=== PATIENT | male | born 1945 | race Caucasian/White ===

== ENCOUNTER 2017-07-15 13:21 | Outpatient (CLI) | payer MEDICARE, OTHER ==
--- NOTE | 2017-07-15 14:39 | CT ---
CT OF THE CHEST WITHOUT CONTRAST: COMPARISON: None. HISTORY: Left lung nodule. A 37-year-old smoking history. The patient quit 10 years ago. TECHNIQUE: Multiple contiguous axial images were obtained in a CT of the chest without contrast per low-dose can cer screening protocol. Coronal reformats were performed. FINDINGS: Mild emphysematous changes are seen in the lung apices. No suspicious pulmonary nodule is seen. No pneumothorax or pleural effusion is present. No focal infiltrates are seen in the lungs. The heart is normal in size without focal cardiac abnormality. Calcifications are seen in the [place] arteries and aorta. No abdominal or pelvic lymphadenopathy is seen. The visualized subdiaphragmatic structures are unremarkable. The chest wall soft tissues are unremar kable. IMPRESSION: Lung RADS category 1 - negative. POS: [facility]
== END 2017-07-15 13:22 | disposition home or self-care (01) ==
LOC: CT 13:21
PROVIDERS: ATTEND Internal Medicine Pulmonary Disease
DX: F17.210 Nicotine dependence, cigarettes, uncomplicated (principal)
CPT/HCPCS: G0297

== ENCOUNTER 2019-03-10 13:06 | Outpatient (CLI) | payer MEDICARE ==
--- NOTE | 2019-03-10 13:38 | CT ---
EXAM: CT chest without contrast per low-dose cancer screening protocol HISTORY: History of smoking and nicotine dependence COMPARISON: 07/15/2017 TECHNIQUE: Multiple contiguous axial images were obtained in a CT of the chest without contrast per l ow-dose cancer screening protocol. Sagittal and coronal reformats were performed. FINDINGS: Pulmonary nodules: Emphysematous changes are seen in the lung apices. No suspicious pulmonary nodules are seen. No focal infiltrates are seen. Pleural space: No pneumothorax or pleural effusion are seen. Heart: The heart is normal in size. Mediastinum: No hilar or mediastinal lymphadenopathy appreciated on this limited noncontrast examinat ion. Bones: Degenerative changes in the spine.. Visualized subdiaphragmatic structures: Unremarkable. IMPRESSION: Lung RADS category 1-negative.
== END 2019-03-10 13:07 | disposition home or self-care (01) ==
LOC: CT 13:06
PROVIDERS: ATTEND Internal Medicine
DX: F17.210 Nicotine dependence, cigarettes, uncomplicated (principal); I10 Essential (primary) hypertension
CPT/HCPCS: G0297

== ENCOUNTER 2021-03-01 17:26 | Emergency (ER) | payer MEDICARE ==
[2021-03-01 18:02] LABS: #Basophils 0.1 thou/uL (0.0-0.2); #Eosinphils 0.3 thou/uL (0.0-0.7); #Lymphocytes 1.7 thou/uL (1.20-3.40); #Monocytes 0.9 thou/uL (0.11-0.59); #Neutrophils 4.3 thou/uL (1.40-6.50); %Eosinophils 4.3 % (0.0-10.0); %Lymphocytes 23.2 % (21.0-51.0); %Monocytes 12.3 % (0.0-10.0); %Neutrophils 59.2 % (42.0-75.0); Hemoglobin 14.1 g/dL (14.0-18.0); Mean Corpuscular HGB CONC 34.4 g/dL (32.0-36.0); Mean Corpuscular Volume 98.7 fL (78.0-98.0); Mean Platelet Volume 5.8 fL (7.4-10.4); Platelet Count 255 thou/uL (130-400); Red Blood Cell (RBC) Count 4.15 mill/uL (4.70-6.10); White Blood Cell (WBC) Count 7.2 thou/uL (4.8-10.8)
[2021-03-01 18:28] LABS: ALT (SGPT) 46 U/L (8-55); AST (SGOT) 24 U/L (5-34); Alkaline Phosphatase 90 U/L (40-110); Anion Gap 13 mmol/L (10-20); BUN (Urea Nitrogen) 23 mg/dL (8.4-25.7); Bilirubin, Total 0.4 mg/dL (0.2-1.2); Calc. Creatinine Clearance 0 mL/min (70-130); Calcium 9.4 mg/dL (7.8-10.44); Carbon Dioxide 25 mmol/L (23-31); Chloride 103 mmol/L (98-107); Globulin 2.3 g/dL (2.4-3.5); Glucose 97 mg/dL (83-110); Potassium 3.9 mmol/L (3.5-5.1); Protein, Total 6.3 g/dL (5.8-8.1); Sodium 137 mmol/L (136-145)
[2021-03-01] MEDS ORDERED: Aspirin Chewable 81 MG TAB ONE (18:39)
[2021-03-01 18:49] LABS: CKMB 1.8 ng/mL (0-6.6)
[2021-03-01] MEDS ORDERED: Enoxaparin Sodium 100 MG/ML SYRINGE ONE (20:08)
== END 2021-03-01 21:04 | disposition short-term general hospital (02) ==
LOC: ERS 17:26
DX: I21.4 Non-ST elevation (NSTEMI) myocardial infarction (principal); I45.10 Unspecified right bundle-branch block; I10 Essential (primary) hypertension; G47.30 Sleep apnea, unspecified; F17.210 Nicotine dependence, cigarettes, uncomplicated; Z79.82 Long term (current) use of aspirin; Z79.899 Other long term (current) drug therapy
CPT/HCPCS: 36415; 71045; 80053; 82553; 84484; 85025; 93005; 96372; J1650

== ENCOUNTER 2021-12-22 12:14 | Outpatient (CLI) | payer OTHER | END 2021-12-22 12:15 | disposition home or self-care (01) | LOC: BICCT 12:14 | PROVIDERS: ATTEND Internal Medicine | DX: Z12.2 Encounter for screening for malignant neoplasm of respiratory organs (principal); F17.210 Nicotine dependence, cigarettes, uncomplicated; R91.8 Other nonspecific abnormal finding of lung field | CPT/HCPCS: 71271 ==

== ENCOUNTER 2022-06-06 16:05 | Outpatient (CLI) | payer OTHER ==
[2022-06-06 17:07] LABS: Bilirubin Neg (Negative); Blood, Urine Negative (Negative); Clarity Clear (Clear); Glucose, Urine (Dipstick) Normal (Negative); Ketone, Urine Negative (Negative); Leukocyte Negative (Negative); Nitrite Negative (Negative); Protein, Urine (Dipstick) Negative (Neg-Trace); Urobilinogen Normal mg/dL (Less than 2)
[2022-06-06 17:12] LABS: #Basophils 0.1 10x3/uL (0.0-0.2); #Eosinphils 0.3 10x3/uL (0.0-0.5); #Monocytes 1.2 10x3/uL (0.0-1.1); #Neutrophils 6.2 10x3/uL (1.5-8.4); %Basophils 0.8 % (0.0-2.0); %Eosinophils 2.8 % (0.0-6.0); %Lymphocytes 15.1 % (18.0-47.0); %Monocytes 12.7 % (0.0-10.0); %Neutrophils 67.9 % (40.0-75.0); Hemoglobin 13.4 g/dL (13.5-17.5); Mean Corpuscular HGB CONC 33.3 g/dL (32.0-36.0); Mean Corpuscular Hemoglobin 32.1 pg (27.0-33.0); Mean Corpuscular Volume 96.6 fl (81.2-95.1); Mean Platelet Volume 9.1 fl (7.4-10.4); Platelet Count 230 10x3/uL (150-450); RBC Distribution Width 14.2 % (11.5-14.5); Red Blood Cell (RBC) Count 4.17 10x6/uL (4.32-5.72); White Blood Cell (WBC) Count 9.1 10x3/uL (3.5-10.5)
[2022-06-06 17:18] LABS: INR-International Normal Ratio 0.9; Prothrombin Time 9.9 sec (9.5-12.1)
[2022-06-06 17:19] LABS: Anion Gap 15 mmol/L (10-20); BUN (Urea Nitrogen) 28 mg/dL (8.4-25.7); Calc. Creatinine Clearance 0 mL/min (70-130); Calcium 9.3 mg/dL (7.8-10.44); Carbon Dioxide 19 mmol/L (23-31); Chloride 109 mmol/L (98-107); Estimated GFR 56; Glucose 90 mg/dL (83-110); Potassium 4.6 mmol/L (3.5-5.1); Sodium 138 mmol/L (136-145)
== END 2022-06-06 16:06 | disposition home or self-care (01) ==
LOC: LABBT 16:05
PROVIDERS: ATTEND Orthopaedic Surgery
DX: Z01.818 Encounter for other preprocedural examination (principal); M17.12 Unilateral primary osteoarthritis, left knee
CPT/HCPCS: 71046; 80048; 81003; 85025; 85610; 86850; 86900; 86901; 87081; 93005; 93010

== ENCOUNTER 2022-06-11 05:31 | Inpatient (IN) | payer OTHER ==
[2022-06-11] MEDS ORDERED: Sodium Chloride 0.9% 100 ML ONE (05:58)
[2022-06-11] MEDS ORDERED: Tranexamic Acid 1,000 MG/10 ML VIAL ONE ×2 (05:58→09:25)
[2022-06-11] MEDS ORDERED: Vancomycin (BATCH) 1.5 GRAM/300 ML BAG ONE (05:58)
[2022-06-11] MEDS ORDERED: Bupivacaine PF 0.5% 30 ML VIAL ONE ×2 (06:42→06:43)
[2022-06-11] MEDS ORDERED: Midazolam HCl 2 mg/2 ml Vial ONE (06:43)
[2022-06-11] MEDS ORDERED: Lidocaine 1% (PF) 30 ML VIAL ONE (06:43)
[2022-06-11] MEDS ORDERED: FENTANYL 50 MCG/ML 1 ML VIAL ONE ×2 (06:43→10:11)
[2022-06-11] MEDS ORDERED: Clindamycin/D5W 600 mg/50 ml Premix Bag ONE (07:00)
[2022-06-11] MEDS ORDERED: fentaNYL PF 100 MCG/2 ML SYRINGE ONE (07:09)
[2022-06-11 07:14] LABS: SARS-CoV-2 NAA Rapid Test Not Detected (NotDetected)
[2022-06-11] MEDS ORDERED: Ondansetron PF 4 MG/2 ML Vial ONE (07:31)
[2022-06-11] MEDS ORDERED: PHENYLEPHRINE-NS 100 MCG/ML 10 ML SYRINGE ONE (07:31)
[2022-06-11] MEDS ORDERED: ePHEDrine 50 MG/ML VIAL ONE (07:31)
[2022-06-11] MEDS ORDERED: traMADol HCl 50 MG TAB PO PRN (07:31)
[2022-06-11] MEDS ORDERED: Promethazine HCl 25 MG/ML VIAL IM PRN ×2 (07:31→07:56)
[2022-06-11] MEDS ORDERED: Bupivacaine HCl 0.5%/Epinephrine 1:200,000/PF 30 ml Vial ONE (07:31)
[2022-06-11] MEDS ORDERED: Fentanyl 100 MCG/2 ML VIAL SLOW IVP PRN (07:31)
[2022-06-11] MEDS ORDERED: PROPOFOL 200 MG/20 ML VIAL ONE (07:31)
[2022-06-11] MEDS ORDERED: Acetaminophen 325 MG TAB PO PRN (07:31)
[2022-06-11] MEDS ORDERED: Lidocaine 1% PF 5 ML VIAL ONE (07:31)
[2022-06-11] MEDS ORDERED: Glycopyrrolate 0.2 MG/ML 5 ML SYRINGE ONE (07:31)
[2022-06-11] MEDS ORDERED: Zolpidem Tartrate 5 MG TAB PO PRN (07:31)
[2022-06-11] MEDS ORDERED: Ondansetron PF 4 MG/2 ML Vial IVP PRN (07:31)
[2022-06-11] MEDS ORDERED: diphenhydrAMINE 25 MG CAP PO PRN (07:31)
[2022-06-11] MEDS ORDERED: Calcium Carbonate 500 MG ChewTAB PO PRN (07:34)
[2022-06-11] MEDS ORDERED: Tranexamic Acid 1,000 MG in Sodium Chloride 0.9% 100 ML IVPB SCH (07:45)
[2022-06-11] MEDS ORDERED: HYDROmorphone 2 MG/ML VIAL SLOW IVP PRN (07:56)
[2022-06-11] MEDS ORDERED: Ropivacaine 0.2% 550 ML 550 ML NERVE BLCK SCH (11:00)
[2022-06-11 12:19] VITALS: BMI 32.6
[2022-06-11] MEDS: HYDROcodone/Acetaminophen 10/325 mg Tablet PO PRN (12:31)
[2022-06-11] MEDS: Sodium Chloride 0.9% 1,000 ML IV SCH ×2 (12:33→18:42)
[2022-06-11] MEDS: Amlodipine 5 MG TAB PO SCH (12:33)
[2022-06-11] MEDS: Ferrous Gluconate 324 MG TAB PO SCH ×2 (12:34→20:40)
[2022-06-11] MEDS: Aspirin 81 mg Enteric Coated Tablet PO SCH ×3 (12:34→20:41)
[2022-06-11] MEDS: Multivitamin W/ Minerals 1 TAB PO SCH (12:34)
[2022-06-11] MEDS: Senokot S 8.6-50 MG TAB PO SCH ×2 (12:35→20:40)
[2022-06-11] MEDS: Losartan/Hydrochlorothiazide 100 mg/25 mg Tablet PO SCH (12:38)
[2022-06-11] MEDS: CEFAZOLIN 2 GM in Sodium Chloride 0.9% 100 ML IVPB SCH ×2 (16:11→22:15)
[2022-06-11] MEDS: Ketorolac Tromethamine 30 MG/ML VIAL IVP SCH ×2 (16:12→22:16)
[2022-06-11] MEDS ORDERED: Vancomycin HCl 1.5 GM in Sodium Chloride 0.9% 250 ML 300 ML IVPB SCH (18:00)
[2022-06-11] MEDS: Atorvastatin Calcium 40 MG TAB PO SCH (20:39)
[2022-06-11] MEDS: Vit A,C & E/Lutein/Minerals Tablet PO SCH (20:40)
[2022-06-11] MEDS ORDERED: Non-Formulary Item 1 EACH (Multivit-Min/Fa/Lycopen/Lutein [Centrum Silver Men Tablet] 1 E PO SCH (21:00)
[2022-06-12] MEDS: Sodium Chloride 0.9% 1,000 ML IV SCH ×3 (06:08→22:39)
[2022-06-12] MEDS: Ketorolac Tromethamine 30 MG/ML VIAL IVP SCH ×3 (06:11→20:43)
[2022-06-12 07:20] LABS: Hemoglobin 12.1 g/dL (14.0-18.0); Mean Corpuscular Hemoglobin 33.2 pg (27.0-31.0); Mean Platelet Volume 6.6 fL (7.4-10.4); Platelet Count 195 10x3/uL (130-400); RBC Distribution Width 12.8 % (11.5-14.5); Red Blood Cell (RBC) Count 3.65 mill/uL (4.70-6.10); White Blood Cell (WBC) Count 8.2 10x3/uL (4.8-10.8)
[2022-06-12] MEDS: HYDROcodone/Acetaminophen 10/325 mg Tablet PO PRN ×2 (09:05→18:39)
[2022-06-12] MEDS: Ferrous Gluconate 324 MG TAB PO SCH ×2 (09:06→20:43)
[2022-06-12] MEDS: Multivitamin W/ Minerals 1 TAB PO SCH (09:07)
[2022-06-12] MEDS: Amlodipine 5 MG TAB PO SCH (09:07)
[2022-06-12] MEDS: Losartan/Hydrochlorothiazide 100 mg/25 mg Tablet PO SCH (09:07)
[2022-06-12] MEDS: Senokot S 8.6-50 MG TAB PO SCH ×2 (13:48→20:42)
[2022-06-12] MEDS: Aspirin 81 mg Enteric Coated Tablet PO SCH (20:42)
[2022-06-12] MEDS: Atorvastatin Calcium 40 MG TAB PO SCH (20:43)
[2022-06-12] MEDS: Vit A,C & E/Lutein/Minerals Tablet PO SCH (20:43)
[2022-06-13] MEDS: Ketorolac Tromethamine 30 MG/ML VIAL IVP SCH (05:21)
[2022-06-13 06:05] LABS: Hemoglobin 12.5 g/dL (14.0-18.0); Mean Corpuscular HGB CONC 32.9 g/dL (32.0-36.0); Mean Corpuscular Hemoglobin 33.3 pg (27.0-31.0); Mean Platelet Volume 6.8 fL (7.4-10.4); Platelet Count 203 10x3/uL (130-400); RBC Distribution Width 12.8 % (11.5-14.5); Red Blood Cell (RBC) Count 3.76 mill/uL (4.70-6.10); White Blood Cell (WBC) Count 9.9 10x3/uL (4.8-10.8)
[2022-06-13] MEDS: Senokot S 8.6-50 MG TAB PO SCH (08:31)
[2022-06-13] MEDS: Multivitamin W/ Minerals 1 TAB PO SCH (08:31)
[2022-06-13] MEDS: Amlodipine 5 MG TAB PO SCH (08:32)
[2022-06-13] MEDS: Losartan/Hydrochlorothiazide 100 mg/25 mg Tablet PO SCH (08:32)
[2022-06-13] MEDS: Sodium Chloride 0.9% 1,000 ML IV SCH (08:32)
[2022-06-13] MEDS: Ferrous Gluconate 324 MG TAB PO SCH (08:32)
[2022-06-13] MEDS: HYDROcodone/Acetaminophen 10/325 mg Tablet PO PRN (08:35)
[2022-06-13 09:00] VITALS: BP 136/77; TEMP 98
[2022-06-13] MEDS ORDERED: Aspirin 81 mg Enteric Coated Tablet PO SCH (10:15)
== END 2022-06-13 11:30 | disposition home or self-care (01) | DRG 470 ==
LOC: SDC 05:31 → SJJU 11:07 → EDSTATUS 14:00 → OBSVTOIN 06-13 08:53
PROVIDERS: ADMIT Orthopaedic Surgery; ATTEND Orthopaedic Surgery
PROC: 0SRD0J9 Replacement of Left Knee Joint with Synthetic Substitute, Cemented, Open Approach (ICD-10-PCS; principal; 2022-06-11)
DX: M17.12 Unilateral primary osteoarthritis, left knee (principal); K21.9 Gastro-esophageal reflux disease without esophagitis; E78.00 Pure hypercholesterolemia, unspecified; G47.33 Obstructive sleep apnea (adult) (pediatric); I73.9 Peripheral vascular disease, unspecified; I10 Essential (primary) hypertension; I25.10 Atherosclerotic heart disease of native coronary artery without angina pectoris; J43.9 Emphysema, unspecified; N40.0 Benign prostatic hyperplasia without lower urinary tract symptoms; F17.210 Nicotine dependence, cigarettes, uncomplicated; Z20.822 Contact with and (suspected) exposure to COVID-19; Z98.52 Vasectomy status; Z95.1 Presence of aortocoronary bypass graft; Z98.890 Other specified postprocedural states; Z95.5 Presence of coronary angioplasty implant and graft; I25.2 Old myocardial infarction; Z88.8 Allergy status to other drugs, medicaments and biological substances; Z88.1 Allergy status to other antibiotic agents
CPT/HCPCS: 36415; 85027; 96365; 96375; 96376; A4306; C1713; C1776; G0378; J1885; J2001; J2250; J2405; J2704; J2795; J3010; J3370; J3490; J7050; S0020; U0002

== ENCOUNTER 2023-01-30 10:48 | Outpatient (CLI) | payer OTHER | END 2023-01-30 10:49 | disposition home or self-care (01) | LOC: BICCT 10:48 | PROVIDERS: ATTEND Internal Medicine Critical Care Medicine | DX: Z12.2 Encounter for screening for malignant neoplasm of respiratory organs (principal); F17.218 Nicotine dependence, cigarettes, with other nicotine-induced disorders | CPT/HCPCS: 71271 ==

== ENCOUNTER 2024-03-11 13:22 | Outpatient (CLI) | payer OTHER | END 2024-03-11 13:23 | disposition home or self-care (01) | LOC: BICCT 13:22 | PROVIDERS: ATTEND Internal Medicine | DX: Z12.2 Encounter for screening for malignant neoplasm of respiratory organs (principal); F17.218 Nicotine dependence, cigarettes, with other nicotine-induced disorders | CPT/HCPCS: 71271 ==